=== PATIENT | female | born 1940 | race Caucasian/White ===

== ENCOUNTER 2016-05-06 16:55 | Inpatient (IN) | payer OTHER ==
[~2016-05-06] VITALS: Ht 147.3 cm; Wt 52.0 kg
[~2016-05-06 16:55] MED LIST: ACETAMINOP500 MG/5 M PO; ASPIRIN81 M2 PO; BENADRYL A12.5 MG/5 PO; CEPACOL SORE T1 EAC4 MM; CIPRO250 MG PO; DURICEF1 GM PO; DURICEF500 MG/5 M PO; ECOTRIN PO; ECOTRIN325 MG PO; FLONASE16 G1 BOTH NARES; GEMFIBROZIL600 MG PO; GLIPIZIDE5 MG PO; GLUCOTROL5 M1 PO; HUMALOG100 UNIT/1 SQ; HUMALOG100 UNITS/ PO; HUMALOG100 UNITS/ SC; IMDUR60 MG PO; KEFLEX500 MG PO; LANTUS 10100 UNITS/ SC; LANTUS 10100 UNITS/ SQ; LANTUS 3 M100 UNITS1 SC; LANTUS100 UNIT/1 SQ; LOPID600 M1 PO; LOPRESSOR100 M1 PO; LOPRESSOR100 MG PO; LORTAB ELIXIR480 ML PO; PLAVIX75 MG PO; TYLENOL REGULA325 MG PO; TYLENOL WITH C1 EACH PO; TYLENOL325 M1 PO; VICODIN 5-3001 EACH PO; ZANTAC150 MG PO; ZESTRIL20 MG PO; ZETIA10 MG PO; ZOFRAN4 MG PO; [UNRECOGNIZED DRUG - OTHER]
[2016-05-06 17:45] LABS: EOSINOPHIL (%) 0.1 % (0-5); HEMATOCRIT 39.7 % (36.0-46.0); IMMATURE GRANULOCYTE (%) 0.4 % (0.0-0.7); IMMATURE GRANULOCYTE COUNT 0.5 K/uL; LYMPHOCYTE COUNT 1.2 K/uL (1.0-2.8); MCH 30.5 PG (29.0-34.0); MCHC 33.8 G/DL (30.0-36.0); MCV 90.2 FL (83-99); MEAN PLAT.VOLUME 9.2 uM^3 (9.5-12.4); MONOCYTE (%) 2.7 % (3-12); MONOCYTE COUNT 0.3 K/uL (0-0.8); NEUTROPHIL (%) 87.3 % (45-76); NEUTROPHIL COUNT 11.2 K/uL (1.8-6.4); RBC DIS.WIDTH-CV 12.6 % (11.8-14.6); RBC DIS.WIDTH-SD 40.8 % (39-53)
[2016-05-06 17:47] LABS: PLATELET COUNT 337 K/uL (156-360); WHITE BLOOD COUNT 12.8 K/uL (4.1-10.2)
[2016-05-06 17:53] LABS: CHLORIDE 108 mEq/L (99-109); POTASSIUM 3.6 mEq/L (3.7-5.4); SODIUM 143 mEq/L (136-147)
[2016-05-06 17:56] LABS: GLUCOSE 277 mg/dL (70-99)
[2016-05-06 17:57] LABS: ANION GAP 15 MEQ/L (2-14)
[2016-05-06 17:58] LABS: TOTAL BILIRUBIN 0.3 mg/dL (0.0-1.0)
[2016-05-06 17:59] LABS: ALKALINE PHOSPHATASE 128 IU/L (3-129); GFR ESTIMATE (CALCULATED) > 59 mL/min/
[2016-05-06 18:01] LABS: UREA NITROGEN (BUN) 17 mg/dL (9-23)
[2016-05-06 18:08] LABS: TROP-I INTERPRETATION NEGATIVE; TROPONIN-I < 0.01 ng/mL (0.0-0.30)
[2016-05-06] MEDS ORDERED: PROTONIX40 MG PO (19:56)
[2016-05-06] MEDS ORDERED: PAXIL10 MG PO (19:58)
[2016-05-06] MEDS ORDERED: SEROQUEL12.5 MG PO (19:59)
[2016-05-06 20:42] LABS: ADD MIUA? YES; BILIRUBIN NEGATIVE; BLOOD TRACE; COLOR YELLOW ((YELLOW)); GLUCOSE (STRIP) 250; KETONES TRACE; LEUKOCYTES NEGATIVE; NITRITE NEGATIVE; PH, URINE 6.5 (5-8); PROTEIN (STRIP) 100; UROBILINOGEN 0.2 MG/DL (0.2-1.0)
[2016-05-06 21:11] LABS: BACTERIA 2+; CASTS PRESENT /LPF; CRYSTALS NONE SEEN; EPITHELIAL CELLS 1+; HYALINE CASTS 0-5 /LPF; MUCUS 1+; RED BLOOD CELLS 0-5 /HPF (0-5); UCUL ADDED? NO; WHITE BLOOD CELLS 0-5 /HPF (0-5)
[2016-05-07] VITALS (12 sets, daily range): BP systolic 113–189; BP diastolic 62–88
[2016-05-07 06:06] LABS: EOSINOPHIL (%) 0 % (0-5); HEMATOCRIT 40.1 % (36.0-46.0); IMMATURE GRANULOCYTE (%) 0.3 % (0.0-0.7); LYMPHOCYTE COUNT 1.6 K/uL (1.0-2.8); MCH 30.9 PG (29.0-34.0); MCHC 33.4 G/DL (30.0-36.0); MCV 92.4 FL (83-99); MONOCYTE (%) 3.1 % (3-12); MONOCYTE COUNT 0.5 K/uL (0-0.8); NEUTROPHIL (%) 85.4 % (45-76); NEUTROPHIL COUNT 12.4 K/uL (1.8-6.4); PLATELET COUNT 348 K/uL (156-360); RBC DIS.WIDTH-CV 12.9 % (11.8-14.6); RBC DIS.WIDTH-SD 43.9 % (39-53); RED BLOOD COUNT 4.34 M/uL (3.80-5.20); WHITE BLOOD COUNT 14.5 K/uL (4.1-10.2)
[2016-05-07 06:29] LABS: ANION GAP 16 MEQ/L (2-14); CHLORIDE 103 MEQ/L (99-109); GFR ESTIMATE (CALCULATED) > 59 mL/min/; GLUCOSE 398 mg/dL (70-99); POTASSIUM 3.9 MEQ/L (3.7-5.4); SAMPLE HEMOLYSIS CHECK 0; SAMPLE ICTERIC CHECK 0; SAMPLE LIPEMIA CHECK 0; SODIUM 140 MEQ/L (136-147); UREA NITROGEN (BUN) 18 mg/dL (9-23)
[2016-05-07 06:45] LABS: TROP-I INTERPRETATION NEGATIVE; TROPONIN-I 0.01 ng/mL (0.0-0.30)
[2016-05-07 11:15] LABS: METH RESISTANT S AUREUS PCR NEGATIVE (NEGATIVE)
[2016-05-07 11:16] LABS: PROBE CHECK PASS; SPECIMEN PROCESSING CONTROL PASS
[2016-05-08] VITALS (10 sets, daily range): BP systolic 144–173; BP diastolic 70–90
[2016-05-08 05:43] LABS: HEMATOCRIT 37.9 % (36.0-46.0); MCH 29.6 PG (29.0-34.0); MCHC 31.9 G/DL (30.0-36.0); MCV 92.7 FL (83-99); MEAN PLAT.VOLUME 9.9 uM^3 (9.5-12.4); PLATELET COUNT 337 K/uL (156-360); RBC DIS.WIDTH-CV 13.1 % (11.8-14.6); RBC DIS.WIDTH-SD 43.8 % (39-53); RED BLOOD COUNT 4.09 M/uL (3.80-5.20); WHITE BLOOD COUNT 16.4 K/uL (4.1-10.2)
[2016-05-08 06:52] LABS: ANION GAP 14 MEQ/L (2-14); CHLORIDE 111 MEQ/L (99-109); GFR ESTIMATE (CALCULATED) > 59 mL/min/; GLUCOSE 207 mg/dL (70-99); POTASSIUM 3.4 MEQ/L (3.7-5.4); SAMPLE HEMOLYSIS CHECK 0; SAMPLE ICTERIC CHECK 0; SAMPLE LIPEMIA CHECK 0; UREA NITROGEN (BUN) 22 mg/dL (9-23)
[2016-05-08 07:04] LABS: SODIUM 148 MEQ/L (136-147)
[2016-05-09 00:01] VITALS: BP 145/79
[2016-05-09 04:01] VITALS: BP 151/85
== END 2016-05-10 13:09 | DRG 189 ==
LOC: EME → EDBD 16:55 → EME 16:55 → EDOF 22:10 → 5WEST 05-07 00:03 → 4WEST 05-07 07:38 → 5WEST 05-07 07:38 → 4WEST 05-07 10:12 → 5EAST 05-09 15:46
PROVIDERS: Emergency Medicine; Hospitalist; Internal Medicine; Physician Assistant
DX: J96.01 Acute respiratory failure with hypoxia (principal); R40.20 Unspecified coma; J69.0 Pneumonitis due to inhalation of food and vomit; J98.11 Atelectasis; J98.19 Other pulmonary collapse; I67.4 Hypertensive encephalopathy; N39.0 Urinary tract infection, site not specified; I46.9 Cardiac arrest, cause unspecified; E86.0 Dehydration; Z51.5 Encounter for palliative care; F79 Unspecified intellectual disabilities; E11.9 Type 2 diabetes mellitus without complications; I10 Essential (primary) hypertension; I25.2 Old myocardial infarction; F32.9 Major depressive disorder, single episode, unspecified; Z66 Do not resuscitate
CPT/HCPCS: 70450; 71010; 80048; 80053; 81003; 83605; 83880; 84484; 85025; 85027; 87040; 87086; 87641; 93005; 94640; 94640 76; 94667; 94668; 94799; 99202; 99281; 99285; C9113; G0378; J0692; J0696; J1644; J2405; J2543; J7030; J7050